=== PATIENT | female | born 1975 | race Caucasian/White ===

== ENCOUNTER 2019-08-27 15:35 | Emergency (ER) | payer SELFPAY ==
[~2019-08-27] VITALS: Ht 167.6 cm; Wt 65.0 kg
[2019-08-27 15:41] VITALS: BP 125/80
[2019-08-27] MEDS ORDERED: ondansetron 4mg rapidly disintigrating tab PO ONE (16:25)
[2019-08-27] MEDS ORDERED: HYDROcodone/acetaminophen 10/325mg tab PO ONE (16:25)
== END 2019-08-27 17:00 | disposition home or self-care (01) ==
LOC: ER 15:36
DX: S92.214A Nondisplaced fracture of cuboid bone of right foot, initial encounter for closed fracture (principal); Z91.040 Latex allergy status; Z88.8 Allergy status to other drugs, medicaments and biological substances; W52.XXXA Crushed, pushed or stepped on by crowd or human stampede, initial encounter; Y93.89 Activity, other specified; Y92.89 Other specified places as the place of occurrence of the external cause; Y99.8 Other external cause status
CPT/HCPCS: 29515; 73610; 73630; 99284